=== PATIENT | female | born 1975 | race Caucasian/White ===

== ENCOUNTER 2017-05-18 17:10 | Observation (INO) | payer SELFPAY ==
[~2017-05-18] VITALS: Ht 165.1 cm; Wt 82.6 kg
[~2017-05-18 17:10] MED LIST: ASPIRIN EC81 MG PO; JANUMET1 TAB PO; LEVOTHYROXIN150 MCG PO; LISINOPRIL2.5 MG PO; METFORMIN500 MG PO
[2017-05-18] MEDS ORDERED: TRESIBA FL100 UNIT/M SC (17:17)
[2017-05-18] MEDS ORDERED: NOVOLOG FLEXPEN SC (17:17)
[2017-05-18] MEDS ORDERED: LEVOTHYROXIN150 MCG PO (17:18)
[2017-05-18 18:12] LABS: HEMATOCRIT 32.8 % (37.0-47.0); HEMOGLOBIN 9.7 g/dl (12.0-16.0); IMMATURE GRANULOCYTES 0.5 % (0.0-1.0); MEAN CELL VOLUME 68.3 fL CALC (80.0-100.0); MEAN CORPUSCULAR HGB 20.2 pG CALC (26.0-32.0); MEAN CORPUSCULAR HGB CONC 29.6 g/L CALC (32.0-36.0); NEUT# 6.75 thou/uL (2.00-7.15); RED BLOOD COUNT 4.8 mill/uL (4.20-5.60); RED CELL DISTRI WIDTH 16.7 % (11.5-15.5)
[2017-05-18 18:26] LABS: URINE BILIRUBIN - DIPSTICK NEGATIVE (NEGATIVE); URINE BLOOD DIPSTICK LARGE (NEGATIVE); URINE COLOR YELLOW; URINE GLUCOSE - DIPSTICK 500 mg/dL (NEGATIVE); URINE KETONE 15 mg/dL (NEGATIVE); URINE LEUK ESTERASE NEGATIVE (NEGATIVE); URINE NITRITE - DIPSTICK NEGATIVE (Negative); URINE PH 5.5 (4.5-8.0); URINE PROTEIN - DIPSTICK NEGATIVE (NEG-TRACE); URINE SPECIFIC GRAVITY 1.025; URINE UROBILINOGEN - DIPSTICK 0.2 E.U./dL (0.2)
[2017-05-18 18:33] LABS: URINE CLARITY CLOUDY
[2017-05-18 18:41] LABS: URINE RBC TNTC RBC/hpf (0-5); URINE SQUAMOUS EPITHELIAL CELL FEW EPI/hpf (0-FEW)
[2017-05-18 18:41] LABS: ALBUMIN 4.3 g/dL (3.2-5.0); ALKALINE PHOSPHATASE 82 u/l (38-126); AMYLASE 64 u/l (30-110); ANION GAP 17 (6-22 (CALC)); BILIRUBIN, TOTAL 0.6 mg/dL (0.0-1.4); BUN 12 mg/dL (7-17); BUN/CREATININE RATIO 20 (12-20 (CALC)); CALCIUM 9.3 mg/dL (8.4-10.2); CARBON DIOXIDE 22 mmol/l (22-30); CHLORIDE 101 mmol/l (95-108); CREATININE 0.6 mg/dL (0.5-1.0); GFR > 60 ML/MIN (>=60 (CALC)); GFR FOR AFR.AMER. > 60 ML/MIN (>=60 (CALC)); GLUCOSE 216 mg/dL (65-105); LIPASE 108 u/l (23-300); POTASSIUM 3.6 mmol/l (3.5-5.1); SGOT/AST 37 u/l (14-36); SGPT/ALT 25 u/l (9-52); SODIUM 137 mmol/l (137-146); TOTAL PROTEIN 7.3 g/dL (6.3-8.2)
[2017-05-19] VITALS (12 sets, daily range): BP systolic 101–117; BP diastolic 62–75
[2017-05-19 06:10] LABS: HEMATOCRIT 28.3 % (37.0-47.0); HEMOGLOBIN 8.5 g/dl (12.0-16.0); IMMATURE GRANULOCYTES 0.4 % (0.0-1.0); MEAN CELL VOLUME 68.7 fL CALC (80.0-100.0); MEAN CORPUSCULAR HGB 20.6 pG CALC (26.0-32.0); NEUT# 10.98 thou/uL (2.00-7.15); RED BLOOD COUNT 4.12 mill/uL (4.20-5.60); RED CELL DISTRI WIDTH 16.7 % (11.5-15.5)
[2017-05-20 04:34] VITALS: BP 110/71
[2017-05-20 08:00] VITALS: BP 110/79
[2017-05-20 16:19] VITALS: BP 122/80
[2017-05-20 20:00] VITALS: BP 152/85
[2017-05-20 20:15] VITALS: BP 119/84
[2017-05-20 23:55] VITALS: BP 116/75
[2017-05-21 04:35] VITALS: BP 101/67
[2017-05-21 08:59] VITALS: BP 113/77
[2017-05-21] MEDS ORDERED: LEVOTHYROXIN150 MCG PO (10:41)
[2017-05-21] MEDS ORDERED: JANUMET1 TAB PO (10:41)
[2017-05-21] MEDS ORDERED: LORTAB 7.57.5 MG PO (10:41)
[2017-05-21] MEDS ORDERED: METFORMIN500 MG PO (10:41)
== END 2017-05-21 11:35 | disposition home or self-care (01) | DRG 742 ==
LOC: ED 17:10 → ED-I 19:20 → ED 19:59 → UNDODEPER 20:00 → ICU 20:00 → ED 21:19 → ED-I 21:30 → MS2 05-19 12:32
PROVIDERS: Emergency Medicine; ADMIT Obstetrics & Gynecology; ATTEND Obstetrics & Gynecology
PROC: 0UT10ZZ Resection of Left Ovary, Open Approach (ICD-10-PCS; principal; 2017-05-18)
PROC: 0UT60ZZ Resection of Left Fallopian Tube, Open Approach (ICD-10-PCS; 2017-05-18)
PROC: 0UB00ZZ Excision of Right Ovary, Open Approach (ICD-10-PCS; 2017-05-18)
PROC: 0UJ84ZZ Inspection of Fallopian Tube, Percutaneous Endoscopic Approach (ICD-10-PCS; 2017-05-18)
PROC: 0UJ34ZZ Inspection of Ovary, Percutaneous Endoscopic Approach (ICD-10-PCS; 2017-05-18)
DX: N80.1 Endometriosis of ovary (principal); K66.1 Hemoperitoneum; N83.201 Unspecified ovarian cyst, right side; E03.9 Hypothyroidism, unspecified; E10.65 Type 1 diabetes mellitus with hyperglycemia; N73.6 Female pelvic peritoneal adhesions (postinfective); R11.2 Nausea with vomiting, unspecified; T40.2X5A Adverse effect of other opioids, initial encounter; Y92.230 Patient room in hospital as the place of occurrence of the external cause; Z53.31 Laparoscopic surgical procedure converted to open procedure; Z79.4 Long term (current) use of insulin
CPT/HCPCS: J2710

== ENCOUNTER 2018-12-31 09:47 | Emergency (ER) | payer SELFPAY ==
[~2018-12-31 09:47] MED LIST changes: +ADLT ASA LOW81 MG PO; -ASPIRIN EC81 MG PO; +LORTAB 7.57.5 MG PO; +NOVOLOG FLEXPEN SC; +TRESIBA FL100 UNIT/M SC
== END 2018-12-31 10:25 | disposition left against medical advice (07) | DRG 951 ==
LOC: ED 09:47 → LWOBS 10:25
DX: Z91.19 Patient's noncompliance with other medical treatment and regimen (principal)

== ENCOUNTER 2019-01-02 10:45 | Emergency (ER) | payer OTHER ==
[~2019-01-02] VITALS: Ht 165.1 cm; Wt 80.0 kg
[2019-01-02] MEDS ORDERED: NOVOLOG FL100 UNIT/M SC (11:14)
[2019-01-02] MEDS ORDERED: LEVOTHYROXIN137 MCG PO (11:15)
[2019-01-02 11:40] VITALS: BP 137/98
== END 2019-01-02 11:40 | disposition home or self-care (01) | DRG 605 ==
LOC: ED 10:45
DX: S60.221A Contusion of right hand, initial encounter (principal); E11.9 Type 2 diabetes mellitus without complications; V49.40XA Driver injured in collision with unspecified motor vehicles in traffic accident, initial encounter; Z79.4 Long term (current) use of insulin